=== PATIENT | male | born 1985 | race Caucasian/White ===

== ENCOUNTER → 2016-06-07 | Outpatient (CLI) | payer OTHER ==
[~2016-06-07] MED LIST: LEXA1TAB PO; PROZ40CA PO
--- NOTE | 2016-06-07 13:58 | REP ---
Clinical: Pain . Technique: Internal rotation, external rotation, and Y view right shoulder . Findings: No acute fracture or dislocation. The acromioclavicular and glenohumeral joints are intact. No periarticular calcifications or degenerative changes are appreciated. Sub acromial space is normal. Surrounding soft tissues are unremarkable. There is an incompletely evaluated sclerotic lesion involving the right humeral shaft which is likely chronic and benign when compared to limited evaluation of the right humerus on chest x-ray dated 01/03/2011. However correlation may be warranted. Impression: 1. Normal right shoulder radiographs. 2. Incompletely evaluated sclerotic focus in the right humeral shaft likely chronic and benign given its similar appearance on chest x-ray dated 2010. Signed by Morgan Maciel MD 06/07/2016 01:49 P
== END ==
LOC: M RAD 13:29
PROVIDERS: ATTEND Internal Medicine
DX: M25.811 Other specified joint disorders, right shoulder (principal)

== ENCOUNTER 2017-07-26 16:25 | Emergency (ER) | payer OTHER ==
[2017-07-26 17:35] LABS: BASO % 0.4 % (0.0-1.0); EOS # 0.1 10^3/uL (0.0-0.50); EOS % 0.9 % (0.0-3.0); HEMATOCRIT 44.6 % (42.0-52.0); HEMOGLOBIN 15.7 g/dl (14.0-18.0); IMMATURE GRANULOCYTE % 0.3 % (0-3.0); LYMPH # 1.8 10^3/uL (1.5-4.5); LYMPH % 25.1 % (24.0-44.0); MEAN CORPUSCULAR HEMOGLOBIN 29.3 pg (27.0-33.0); MEAN CORPUSCULAR HGB CONC 35.2 g/dl (32.0-36.5); MEAN CORPUSCULAR VOLUME 83.4 fl (80.0-96.0); MONO # 0.6 10^3/uL (0.0-0.8); MONO % 8.9 % (0.0-5.0); NEUTROPHILS # 4.5 10^3/uL (1.8-7.7); NEUTROPHILS % 64.4 % (36.0-66.0); PLATELET COUNT, AUTOMATED 183 10^3/uL (150-450); RED BLOOD COUNT 5.35 10^6/uL (4.30-6.10); RED CELL DISTRIBUTION WIDTH 12.7 % (11.5-14.5)
[2017-07-26 17:47] LABS: INR 0.93; PROTHROMBIN TIME 12.6 SECONDS (12.4-14.5)
[2017-07-26 18:01] LABS: NT-PRO BNP 13 PG/ML (<125)
[2017-07-26 18:17] LABS: ALBUMIN 4.1 GM/DL (3.2-5.2); ALBUMIN/GLOBULIN RATIO 1.28 (1.00-1.93); ALKALINE PHOSPHATASE 69 U/L (45-117); ALT/SGPT 59 U/L (12-78); ANION GAP 8 MEQ/L (8-16); AST/SGOT 25 U/L (7-37); BILIRUBIN,DIRECT 0.1 MG/DL (0.0-0.2); BILIRUBIN,TOTAL 0.9 MG/DL (0.2-1.0); BLOOD UREA NITROGEN 14 MG/DL (7-18); CALCIUM LEVEL 8.8 MG/DL (8.5-10.1); CARBON DIOXIDE LEVEL 26 MEQ/L (21-32); CHLORIDE LEVEL 104 MEQ/L (98-107); CPK CREATINE PHOSPHOKINASE 102 U/L (39-308); CREATININE FOR GFR 1.06 MG/DL (0.70-1.30); GLOMERULAR FILTRATION RATE > 60.0 (>60); GLUCOSE, FASTING 96 MG/DL (70-100); LIPASE 152 U/L (73-393); POTASSIUM SERUM 3.9 MEQ/L (3.5-5.1); SODIUM LEVEL 138 MEQ/L (136-145); TOTAL PROTEIN 7.3 GM/DL (6.4-8.2); TROPONIN I < 0.02 NG/ML (< 0.10)
[2017-07-26 18:23] LABS: MB/CK RELATIVE INDEX 0.98 (< OR =4)
[2017-07-26 18:39] LABS: D-DIMER QUANT < 270.0 ng/ml (<500)
[2017-07-26 21:36] LABS: CPK CREATINE PHOSPHOKINASE 96 U/L (39-308); TROPONIN I < 0.02 NG/ML (< 0.10)
[2017-07-26 21:37] LABS: MB/CK RELATIVE INDEX 1.04 (< OR =4)
== END 2017-07-26 22:02 | disposition home or self-care (01) ==
LOC: M ED 16:25
DX: R07.9 Chest pain, unspecified (principal); E78.5 Hyperlipidemia, unspecified; Z79.899 Other long term (current) drug therapy; Z91.013 Allergy to seafood; Z88.2 Allergy status to sulfonamides
CPT/HCPCS: 71045

== ENCOUNTER 2018-08-04 15:19 | Emergency (ER) | payer OTHER ==
[~2018-08-04] VITALS: Ht 170.2 cm; Wt 95.5 kg
[~2018-08-04 15:19] MED LIST changes: +ATOR80TA59 PO; +EPIP0.3I2 IJ; +ERGO500014 PO; +MELO15TA28 PO
[2018-08-04] MEDS ORDERED: ZOLP5TAB (15:29)
[2018-08-04] MEDS ORDERED: ESCI20TA (15:29)
[2018-08-04] MEDS ORDERED: ROBA500T PO (17:23)
[2018-08-04] MEDS ORDERED: PRED10TA2 PO (17:23)
[2018-08-04 17:29] VITALS: BP 128/81
[2018-08-04] MEDS ORDERED: METHOCARBAMOL 500 MG TAB PO ONE (17:30)
[2018-08-04] MEDS ORDERED: predniSONE 20 MG TAB PO ONE (17:30)
== END 2018-08-04 17:34 | disposition home or self-care (01) ==
LOC: M ED 15:19
DX: M62.830 Muscle spasm of back (principal); M54.9 Dorsalgia, unspecified; G89.29 Other chronic pain; F43.10 Post-traumatic stress disorder, unspecified; Z91.030 Bee allergy status; Z88.2 Allergy status to sulfonamides; Z79.899 Other long term (current) drug therapy

== ENCOUNTER 2018-12-02 18:33 | Emergency (ER) | payer OTHER ==
[~2018-12-02] VITALS: Ht 170.2 cm; Wt 104.8 kg
[~2018-12-02 18:33] MED LIST changes: -ERGO500014 PO; +ESCI20TA; +PRED10TA2 PO; +ROBA500T PO; +VITA500045 PO; +ZOLP5TAB
[2018-12-02] MEDS ORDERED: AMOX500C PO (23:18)
[2018-12-02] MEDS ORDERED: PROAAER10 INH (23:18)
[2018-12-02] MEDS ORDERED: POLY2.5S OD (23:18)
[2018-12-02] MEDS ORDERED: AMOXICILLIN 500 MG CAP PO STA (23:20)
[2018-12-02 23:44] VITALS: BP 130/86
== END 2018-12-02 23:45 | disposition home or self-care (01) ==
LOC: M ED 18:33
DX: H10.9 Unspecified conjunctivitis (principal); N39.0 Urinary tract infection, site not specified; J03.00 Acute streptococcal tonsillitis, unspecified; E78.5 Hyperlipidemia, unspecified; Z90.89 Acquired absence of other organs; F43.10 Post-traumatic stress disorder, unspecified; F41.9 Anxiety disorder, unspecified; F32.9 Major depressive disorder, single episode, unspecified; Z79.899 Other long term (current) drug therapy; Z88.2 Allergy status to sulfonamides; Z91.030 Bee allergy status

== ENCOUNTER 2025-01-28 11:05 | Emergency (ER) | payer OTHER ==
[~2025-01-28] VITALS: Ht 170.2 cm; Wt 118.6 kg
[~2025-01-28 11:05] MED LIST changes: +AMOX500C PO; -ESCI20TA; +ESCI20TA16; +POLY2.5S OD; +PROAAER10 INH
[2025-01-28] MEDS ORDERED: EPIP0.3I2 IM (11:27)
[2025-01-28] MEDS ORDERED: PRED20TA PO (11:28)
[2025-01-28] MEDS: diphenhydrAMINE 50 MG/ML VIAL IV ONE (11:41)
[2025-01-28] MEDS: FAMOTIDINE 20 MG/2 ML VIAL IVP ONE (11:41)
[2025-01-28] MEDS ORDERED: FLON1SPR NARES (11:56)
[2025-01-28] MEDS ORDERED: FOLI1TAB11 PO (11:56)
[2025-01-28] MEDS ORDERED: PANT40TA29 PO (11:56)
[2025-01-28] MEDS ORDERED: VITA1CAP25 PO (11:56)
[2025-01-28] MEDS ORDERED: CETI-24 PO (11:56)
[2025-01-28] MEDS ORDERED: [UNRECOGNIZED DRUG - CODE] PO (11:56)
[2025-01-28] MEDS ORDERED: DULO1CAP5 PO (11:56)
[2025-01-28] MEDS ORDERED: MAGN400T2 PO (11:56)
[2025-01-28] MEDS ORDERED: ROSU40TA81 PO (11:56)
[2025-01-28] MEDS ORDERED: HOME MED LIST COMPLETE! XX SCH (12:00)
[2025-01-28 14:13] VITALS: BP 139/79; TEMP 99.5; O2SAT 97
== END 2025-01-28 14:19 | disposition home or self-care (01) ==
LOC: M ED 11:05
DX: T63.441A Toxic effect of venom of bees, accidental (unintentional), initial encounter (principal); F32.A Depression, unspecified; F43.10 Post-traumatic stress disorder, unspecified; E78.5 Hyperlipidemia, unspecified; Z88.2 Allergy status to sulfonamides; Z91.030 Bee allergy status; Z79.899 Other long term (current) drug therapy; Z79.52 Long term (current) use of systemic steroids
CPT/HCPCS: 96374; 99284; J1200; J1308; J2919